=== PATIENT | female | born 1990 | race Caucasian/White ===

== ENCOUNTER 2019-04-09 19:37 | Emergency (ER) | payer OTHER ==
[~2019-04-09] VITALS: Ht 167.6 cm; Wt 76.7 kg
[2019-04-09 19:42] VITALS: BP 111/67; Ht 167.6 cm; Wt 76.7 kg
== END 2019-04-09 20:20 | disposition home or self-care (01) ==
LOC: ED 19:37
DX: L25.9 Unspecified contact dermatitis, unspecified cause (principal)